=== PATIENT | male | born 1970 | race Caucasian/White ===

== ENCOUNTER 2019-01-07 17:26 | Emergency (ER) | payer OTHER ==
[~2019-01-07] VITALS: Ht 175.3 cm; Wt 61.2 kg
[2019-01-07 19:14] LABS: BASOPHILS ABSOLUTE AUTO 0.03 K/mm3 (0.00-0.23); BASOPHILS PERCENT AUTO 0 % (0-2); EOSINOPHILS ABSOLUTE AUTO 0.05 K/mm3 (0.00-0.68); EOSINOPHILS PERCENT AUTO 0 % (0-6); Hematocrit 49.2 % (37.0-53.0); Hemoglobin 16.9 g/dL (13.5-17.5); IMMATURE GRAN ABSOLUTE AUTO 0.03 K/mm3 (0.00-0.10); IMMATURE GRAN PERCENT AUTO 0 % (0-1); LYMPHOCYTES ABSOLUTE AUTO 0.31 K/mm3 (0.84-5.20); LYMPHOCYTES PERCENT AUTO 2 % (21-46); MONOCYTES ABSOLUTE AUTO 0.81 K/mm3 (0.16-1.47); MONOCYTES PERCENT AUTO 6 % (4-13); Mean Corpuscular HGB 32.5 pg (26.0-34.0); Mean Corpuscular HGB Conc 34.3 g/dL (31.5-36.5); Mean Corpuscular Volume 95 fL (80-100); Mean Platelet Volume 10.6 fL (9.1-12.4); NEUTROPHILS ABSOLUTE AUTO 12.99 K/mm3 (1.96-9.15); NEUTROPHILS PERCENT AUTO 91 % (41-73); Platelet Count 156 K/mm3 (150-400); RDW Coefficient Variation 11.4 % (11.7-14.2); RDW Standard Deviation 39.7 fL (35.1-46.3); White Blood Cell Count 14.22 K/mm3 (4.00-11.30)
[2019-01-07 19:26] LABS: Alanine Aminotransfer (ALT/SGP 33 U/L (12-78); Albumin, Blood 4.2 g/dL (3.4-5.0); Albumin/Globulin Ratio 1.1 (0.8-1.8); Alk Phos 61 U/L (50-136); Anion Gap 11 mmol/L (6-16); Aspartate Aminotrans (AST/SGOT 24 U/L (12-37); Bilirubin, Total 1.1 mg/dL (0.1-1.0); Blood Urea Nitrogen 23 mg/dL (8-24); Bun/Creatinine Ratio 45.7 (12.0-20.0); CO2, Blood 20 mmol/L (21-32); Calcium, Blood 9.2 mg/dL (8.5-10.1); Chloride, Blood 106 mmol/L (98-108); Globulin, Blood 3.9 g/dL (2.2-4.0); Glomerular Filtration Rate >60 (60-); Glucose, Blood 115 mg/dL (70-99); Potassium, Blood 3.9 mmol/L (3.5-5.5); Sodium, Blood 137 mmol/L (136-145); Total Protein, Blood 8.1 g/dL (6.4-8.2)
[2019-01-07] MEDS ORDERED: LOPE2C PO (20:18)
[2019-01-07] MEDS ORDERED: Zofran8 MG PO (20:18)
[2019-01-07 23:09] LABS: Adenovirus F 40/41 Not Detected (NOT DETECT); Astrovirus Not Detected (NOT DETECT); Campylobacter Sp Not Detected (NOT DETECT); Cryptosporidium Not Detected (NOT DETECT); Cyclospora Cayetanensis Not Detected (NOT DETECT); E. Coli O157 Not Detected (NOT DETECT); Entamoeba Histolytica Not Detected (NOT DETECT); Enteroaggregative E. coli-EAEC Not Detected (NOT DETECT); Enteropathogenic E. coli-EPEC Not Detected (NOT DETECT); Enterotoxigenic E. coli-ETEC Not Detected (NOT DETECT); Giardia Lamblia Not Detected (NOT DETECT); Norovirus GI/GII Detected (NOT DETECT); Plesiomonas Shigelloides Not Detected (NOT DETECT); Rotavirus A Not Detected (NOT DETECT); Salmonella Sp Not Detected (NOT DETECT); Sapovirus Not Detected (NOT DETECT); Shiga Toxin-prod E. coli-STEC Not Detected (NOT DETECT); Shigella/Enteroin E. coli-EIEC Not Detected (NOT DETECT); Vibrio Cholerae Not Detected (NOT DETECT); Vibrio Sp Not Detected (NOT DETECT); Yersinia Enterocolitica Not Detected (NOT DETECT)
== END 2019-01-07 21:09 | disposition home or self-care (01) ==
LOC: ER 17:26
PROVIDERS: Emergency Medicine
DX: R19.7 Diarrhea, unspecified (principal); R11.10 Vomiting, unspecified; K21.9 Gastro-esophageal reflux disease without esophagitis; N40.0 Benign prostatic hyperplasia without lower urinary tract symptoms
CPT/HCPCS: 80053; 83690; 85025; 87507; 96361; 96374; 99284-25; A9270-GY; J2405; J7120

== ENCOUNTER 2019-01-26 11:59 | Day surgery (SDC) | payer OTHER ==
[~2019-01-26] VITALS: Ht 175.3 cm; Wt 61.2 kg
[~2019-01-26 11:59] MED LIST: LOPE2C PO; OMEPRAZOLE20 MG PO; Zofran8 MG PO
[2019-01-26] MEDS ORDERED: TAMS.4ER (14:23)
[2019-01-26] MEDS ORDERED: VOLTAREN100 GM (14:24)
[2019-01-26] MEDS ORDERED: SCOPOLAMINE1 EACH (14:26)
[2019-01-26] MEDS ORDERED: ZALE10 (14:26)
--- NOTE | 2019-01-26 16:15 | NUR ---
01/26/19 1615 Amena Cadena PT. VERBALIZES HAVING A LITTLE BIT OF A SORE THROAT & SCRATCHY. PT. GIVEN CRANBERRY MIXED WITH APPLE JUICE BUT PT. VERBALIZED IT DIDN'T FEEL VERY GOOD ON HIS THROAT. PT. THEN GIVEN WATER IN WHICH HE SAID THE SAME. PT. INSTRUCTED HE MAY HAVE A SORE THROAT FOR A DAY OR SO & TO EAT SOFT FOODS OTHERWISE HE COULD EAT & DRINK WHAT HE WANTED. ALSO SUGGESTED SOME HONEY OR THROAT LOZENGES FOR HIS SCRATCHY THROAT.
== END 2019-01-26 15:40 | disposition home or self-care (01) ==
LOC: ORSCSDS 11:59
PROVIDERS: Student in an Organized Health Care Education/Training Program
PROC: 0DB98ZX Excision of Duodenum, Via Natural or Artificial Opening Endoscopic, Diagnostic (ICD-10-PCS; principal; 2019-01-26 13:15)
PROC: 0DB68ZX Excision of Stomach, Via Natural or Artificial Opening Endoscopic, Diagnostic (ICD-10-PCS; principal; 2019-01-26 13:15)
PROC: 0DB58ZX Excision of Esophagus, Via Natural or Artificial Opening Endoscopic, Diagnostic (ICD-10-PCS; principal; 2019-01-26 13:15)
DX: K21.9 Gastro-esophageal reflux disease without esophagitis (principal); R10.13 Epigastric pain; K29.70 Gastritis, unspecified, without bleeding; Z79.899 Other long term (current) drug therapy
CPT/HCPCS: 88305; 88342; J2704; J7120

== ENCOUNTER 2022-11-17 09:23 | Day surgery (SDC) | payer OTHER ==
[~2022-11-17] VITALS: Ht 175.3 cm; Wt 63.3 kg
[~2022-11-17 09:23] MED LIST changes: +SCOPOLAMINE1 EACH; +TAMS.4ER; +VOLTAREN100 GM; +ZALE10
[2022-11-17] MEDS ORDERED: CLOBETASOL EMOL15 G1 (09:52)
[2022-11-17] MEDS ORDERED: Vitamin D1000 UNI1 (09:52)
[2022-11-17] MEDS ORDERED: ESOM20 (09:52)
[2022-11-17] MEDS ORDERED: MELO7.5 (09:53)
[2022-11-17] MEDS ORDERED: FAMO10 (09:53)
== END 2022-11-17 12:09 | disposition home or self-care (01) ==
LOC: ORSCSDS 09:23
PROVIDERS: Student in an Organized Health Care Education/Training Program
PROC: 0DBL8ZX Excision of Transverse Colon, Via Natural or Artificial Opening Endoscopic, Diagnostic (ICD-10-PCS; principal; 2022-11-17 11:00)
DX: K62.5 Hemorrhage of anus and rectum (principal); K64.8 Other hemorrhoids; K21.9 Gastro-esophageal reflux disease without esophagitis; Z79.899 Other long term (current) drug therapy
CPT/HCPCS: 88305; J2704; J7120